=== PATIENT | male | born 1955 | race American Indian/Alaskan Native ===

== ENCOUNTER 2017-12-02 13:41 | Outpatient (CLI) | payer OTHER ==
--- NOTE | 2017-12-02 14:23 | XRay Report ---
LEFT SHOULDER RADIOGRAPHS INDICATION: Left shoulder pain. COMPARISON: None similar. FINDINGS: Frontal and Y views of the left shoulder, 3 projections demonstrate normal humeral head contour, well positioned against the glenoid. Mild AC joint degenerative spurring. Preserved scapular contour. Normal visualized soft tissues, left ribs and lung. 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 Please correlate. Thank you for the opportunity to participate in this patient's care.
== END 2017-12-02 13:42 | disposition home or self-care (01) ==
LOC: SPVIMAG 13:41
DX: M75.92 Shoulder lesion, unspecified, left shoulder (principal)